=== PATIENT | male | born 1960 | race Caucasian/White ===

== ENCOUNTER 2024-08-05 12:25 | Inpatient (IN) | payer BC, OTHER ==
[~2024-08-05] VITALS: Ht 182.9 cm; Wt 62.7 kg
[2024-08-05] MEDS: LORazepam 2 mg/ml vial IV ONE (12:55)
[2024-08-05 13:26] LABS: BASOPHILS % (AUTO) 0.1 % (0-1); EOSINOPHILS % (AUTO) 0.1 % (0-6); HEMATOCRIT 45.2 % (42.0-52.0); HEMOGLOBIN 15.1 g/dl (14.0-17.9); LYMPHOCYTES # (AUTO) 0.3 X10'3 (1.1-4.8); LYMPHOCYTES % (AUTO) 1.8 % (21-51); MEAN CORPUSCULAR HEMOGLOBIN 32.7 PG (27.0-31.0); MEAN CORPUSCULAR HGB CONC 33.3 g/dL (33.0-36.5); MEAN CORPUSCULAR VOLUME 98.2 FL (78-98); MEAN PLATELET VOLUME 6.7 FL (7.4-10.4); MONOCYTES # (AUTO) 0.4 X10'3 (0-0.9); MONOCYTES % (AUTO) 2.3 % (2-12); NEUTROPHILS # (AUTO) 15.1 X10'3 (1.8-7.7); NEUTROPHILS % (AUTO) 95.7 % (42-75); PLATELET COUNT 368 X10'3 (140-440); RED CELL DISTRIBUTION WIDTH 13.3 % (11.5-14.5); WHITE BLOOD COUNT 15.7 X10'3 (4.5-11.0)
[2024-08-05 13:49] LABS: ALBUMIN 1.8 G/DL (3.4-5.0); ANION GAP 8 (8-16); BLOOD UREA NITROGEN 9 MG/DL (7-18); BUN/CREATININE RATIO 11.3 (10.0-20.0); CALCIUM 7.5 MG/DL (8.5-10.1); CHLORIDE 106 MMOL/L (99-107); GLUCOSE 135 MG/DL (70-104); POTASSIUM 4.7 MMOL/L (3.5-5.1); PRO BRAIN NATRIURETIC PEPTIDE 78 PG/ML (0-125); SODIUM 137 MMOL/L (135-145); TOTAL CARBON DIOXIDE 23.4 MMOL/L (24-32); eCRCL 85 ML/MIN; eGFR > 90 ML/MIN
[2024-08-05] MEDS ORDERED: morphine 2 MG/ML inj. syringe IV PRN (13:55)
[2024-08-05] MEDS ORDERED: acetaminophen 325mg tablet PO PRN ×2 (13:55)
[2024-08-05] MEDS ORDERED: mag hydrox/Alum hydrox/simeth 30ml oral suspension PO PRN (13:55)
[2024-08-05] MEDS ORDERED: ondansetron/PF 4mg/2ml inj IV PRN (13:55)
[2024-08-05] MEDS ORDERED: NO HOME MEDS (14:33)
[2024-08-05] MEDS ORDERED: LORazepam 1 MG tablet PO PRN (14:35)
[2024-08-05] MEDS ORDERED: ipratropium/albuterol 3ml nebule NEB PRN (15:20)
[2024-08-05] MEDS: HYDROcodone/acetaminophen 5mg/325mg tablet PO PRN (16:51)
[2024-08-05 17:33] VITALS: RESP 16
[2024-08-05 17:44] VITALS: PULSE 94; RESP 14; O2SAT 90
[2024-08-05 18:00] VITALS: BP 108/72; PULSE 84; RESP 14; TEMP 97.9; O2SAT 91
[2024-08-05 19:31] VITALS: PULSE 108; RESP 18; O2SAT 90
[2024-08-05 19:40] VITALS: RESP 16; O2SAT 91
[2024-08-05] MEDS: morphine 10mg/ml inj. IV ONE (21:14)
[2024-08-05] MEDS: LIDOcaine 1% 30ml preserv. free vial SQ STA (21:27)
[2024-08-05 22:00] VITALS: BP 99/63; PULSE 85; RESP 20; TEMP 97.4; O2SAT 90
[2024-08-05] MEDS: docusate sod 100mg capsule PO SCH (22:36)
[2024-08-05] MEDS: heparin, porcine 5000 units/ml vial SQ SCH (22:38)
[2024-08-05] MEDS: thiamine 100mg/ml 2ml inj. IV SCH (22:38)
[2024-08-05] MEDS: HYDROcodone/acetaminophen 10/325mg tab PO PRN (22:51)
[2024-08-06] MEDS: piperacillin/tazo 4.5gm/100ml 100 ML IV SCH (00:10)
[2024-08-06] MEDS: morphine 2 MG/ML inj. syringe IV PRN (00:20)
[2024-08-06 06:00] VITALS: BP 109/73; PULSE 74; RESP 18; TEMP 96.6; O2SAT 97
[2024-08-06 06:16] LABS: PROTHROMBIN TIME 10.6 SECONDS (9.0-12.0)
[2024-08-06 06:19] LABS: BASOPHILS % (AUTO) 0.2 % (0-1); EOSINOPHILS % (AUTO) 0 % (0-6); HEMATOCRIT 43.2 % (42.0-52.0); HEMOGLOBIN 14.5 g/dl (14.0-17.9); LYMPHOCYTES # (AUTO) 0.8 X10'3 (1.1-4.8); LYMPHOCYTES % (AUTO) 4.6 % (21-51); MEAN CORPUSCULAR HGB CONC 33.5 g/dL (33.0-36.5); MEAN CORPUSCULAR VOLUME 98.5 FL (78-98); MONOCYTES # (AUTO) 1.2 X10'3 (0-0.9); MONOCYTES % (AUTO) 6.9 % (2-12); NEUTROPHILS # (AUTO) 14.7 X10'3 (1.8-7.7); NEUTROPHILS % (AUTO) 88.3 % (42-75); PLATELET COUNT 397 X10'3 (140-440); RED BLOOD COUNT 4.39 X10'6 (4.70-6.10); RED CELL DISTRIBUTION WIDTH 13.4 % (11.5-14.5); WHITE BLOOD COUNT 16.6 X10'3 (4.5-11.0)
[2024-08-06 06:31] LABS: ALBUMIN 1.9 G/DL (3.4-5.0); ANION GAP 9 (8-16); BLOOD UREA NITROGEN 12 MG/DL (7-18); BUN/CREATININE RATIO 16.7 (10.0-20.0); CALCIUM 8.2 MG/DL (8.5-10.1); CHLORIDE 105 MMOL/L (99-107); CREATININE 0.72 MG/DL (0.60-1.10); GLUCOSE 148 MG/DL (70-104); POTASSIUM 4.2 MMOL/L (3.5-5.1); SODIUM 137 MMOL/L (135-145); TOTAL CARBON DIOXIDE 23.4 MMOL/L (24-32); eCRCL 94 ML/MIN; eGFR > 90 ML/MIN
[2024-08-06] MEDS: multivitamins, therapeutics tablet PO SCH (08:20)
[2024-08-06] MEDS: folic acid 1mg/0.2ml inj IV SCH (08:21)
[2024-08-06 10:00] VITALS: BP 98/64; PULSE 91; RESP 15; TEMP 97.5; O2SAT 92
[2024-08-06 18:00] VITALS: BP 122/71; PULSE 82; RESP 16; TEMP 97.7; O2SAT 95
[2024-08-06 20:00] VITALS: RESP 18; O2SAT 92
[2024-08-06 22:00] VITALS: BP 119/79; PULSE 88; RESP 18; TEMP 96; O2SAT 95
[2024-08-07 06:00] VITALS: BP 110/71; PULSE 71; RESP 16; TEMP 97.7; O2SAT 97
[2024-08-07 06:21] LABS: BASOPHILS % (AUTO) 0.2 % (0-1); EOSINOPHILS % (AUTO) 0.4 % (0-6); HEMOGLOBIN 14.3 g/dl (14.0-17.9); LYMPHOCYTES # (AUTO) 1.4 X10'3 (1.1-4.8); LYMPHOCYTES % (AUTO) 15.3 % (21-51); MEAN CORPUSCULAR HEMOGLOBIN 33.6 PG (27.0-31.0); MEAN CORPUSCULAR VOLUME 98.8 FL (78-98); MEAN PLATELET VOLUME 7.2 FL (7.4-10.4); MONOCYTES # (AUTO) 0.9 X10'3 (0-0.9); MONOCYTES % (AUTO) 9.8 % (2-12); NEUTROPHILS # (AUTO) 6.9 X10'3 (1.8-7.7); NEUTROPHILS % (AUTO) 74.3 % (42-75); PLATELET COUNT 350 X10'3 (140-440); RED BLOOD COUNT 4.25 X10'6 (4.70-6.10); RED CELL DISTRIBUTION WIDTH 13.1 % (11.5-14.5); WHITE BLOOD COUNT 9.2 X10'3 (4.5-11.0)
[2024-08-07 06:23] LABS: PROTHROMBIN TIME 10.4 SECONDS (9.0-12.0)
[2024-08-07 06:35] LABS: ALBUMIN 1.6 G/DL (3.4-5.0); ANION GAP 8 (8-16); BLOOD UREA NITROGEN 10 MG/DL (7-18); BUN/CREATININE RATIO 14.7 (10.0-20.0); CALCIUM 7.9 MG/DL (8.5-10.1); CHLORIDE 108 MMOL/L (99-107); CREATININE 0.68 MG/DL (0.60-1.10); GLUCOSE 99 MG/DL (70-104); POTASSIUM 3.8 MMOL/L (3.5-5.1); SODIUM 141 MMOL/L (135-145); TOTAL CARBON DIOXIDE 25.4 MMOL/L (24-32); eCRCL 100 ML/MIN; eGFR > 90 ML/MIN
[2024-08-07 08:00] VITALS: RESP 16
[2024-08-07 10:00] VITALS: BP 130/82; PULSE 95; RESP 18; TEMP 97.7; O2SAT 91
[2024-08-07] MEDS: levoFLOXACIN 750MG TABLET PO SCH (12:02)
[2024-08-07 18:00] VITALS: BP 115/76; PULSE 83; RESP 18; TEMP 98.3; O2SAT 94
[2024-08-07 20:10] VITALS: RESP 18
[2024-08-07 22:00] VITALS: BP 125/81; PULSE 86; RESP 18; TEMP 97.8; O2SAT 94
[2024-08-08 06:16] LABS: BASOPHILS % (AUTO) 0.6 % (0-1); EOSINOPHILS # (AUTO) 0.2 X10'3 (0-0.9); EOSINOPHILS % (AUTO) 2.1 % (0-6); HEMATOCRIT 43.8 % (42.0-52.0); HEMOGLOBIN 14.8 g/dl (14.0-17.9); LYMPHOCYTES # (AUTO) 1.4 X10'3 (1.1-4.8); LYMPHOCYTES % (AUTO) 18.6 % (21-51); MEAN CORPUSCULAR HEMOGLOBIN 32.9 PG (27.0-31.0); MEAN CORPUSCULAR HGB CONC 33.7 g/dL (33.0-36.5); MEAN CORPUSCULAR VOLUME 97.7 FL (78-98); MONOCYTES # (AUTO) 0.9 X10'3 (0-0.9); MONOCYTES % (AUTO) 11.8 % (2-12); NEUTROPHILS % (AUTO) 66.9 % (42-75); PLATELET COUNT 382 X10'3 (140-440); RED BLOOD COUNT 4.48 X10'6 (4.70-6.10); RED CELL DISTRIBUTION WIDTH 13.5 % (11.5-14.5); WHITE BLOOD COUNT 7.5 X10'3 (4.5-11.0)
[2024-08-08 06:18] LABS: PROTHROMBIN TIME 10.4 SECONDS (9.0-12.0)
[2024-08-08 06:27] LABS: ANION GAP 4 (8-16); BLOOD UREA NITROGEN 8 MG/DL (7-18); BUN/CREATININE RATIO 9.5 (10.0-20.0); CALCIUM 8.9 MG/DL (8.5-10.1); CHLORIDE 106 MMOL/L (99-107); CREATININE 0.84 MG/DL (0.60-1.10); GLUCOSE 91 MG/DL (70-104); SODIUM 141 MMOL/L (135-145); TOTAL CARBON DIOXIDE 31.5 MMOL/L (24-32); eCRCL 81 ML/MIN; eGFR > 90 ML/MIN
[2024-08-08 18:00] VITALS: BP 126/96; PULSE 89; RESP 14; TEMP 98.1; O2SAT 93
[2024-08-08 20:00] VITALS: RESP 14; O2SAT 93
[2024-08-08 22:00] VITALS: BP 119/80; PULSE 84; RESP 14; TEMP 97.5; O2SAT 95
[2024-08-09] MEDS: HYDROmorphone inj. 0.5 MG/0.5 ML DISP.SYRIN IV PRN (01:09)
[2024-08-09 05:36] LABS: BASOPHILS # (AUTO) 0.1 X10'3 (0-0.2); BASOPHILS % (AUTO) 0.8 % (0-1); EOSINOPHILS # (AUTO) 0.3 X10'3 (0-0.9); HEMATOCRIT 46.6 % (42.0-52.0); HEMOGLOBIN 15.8 g/dl (14.0-17.9); LYMPHOCYTES # (AUTO) 1.5 X10'3 (1.1-4.8); LYMPHOCYTES % (AUTO) 16.8 % (21-51); MEAN CORPUSCULAR HEMOGLOBIN 32.9 PG (27.0-31.0); MEAN CORPUSCULAR HGB CONC 33.9 g/dL (33.0-36.5); MEAN CORPUSCULAR VOLUME 97.1 FL (78-98); MEAN PLATELET VOLUME 6.6 FL (7.4-10.4); MONOCYTES # (AUTO) 0.8 X10'3 (0-0.9); MONOCYTES % (AUTO) 9.8 % (2-12); NEUTROPHILS # (AUTO) 5.9 X10'3 (1.8-7.7); NEUTROPHILS % (AUTO) 68.6 % (42-75); PLATELET COUNT 364 X10'3 (140-440); WHITE BLOOD COUNT 8.6 X10'3 (4.5-11.0)
[2024-08-09 05:57] LABS: ALBUMIN 2.1 G/DL (3.4-5.0); ANION GAP 8 (8-16); BLOOD UREA NITROGEN 8 MG/DL (7-18); BUN/CREATININE RATIO 11.4 (10.0-20.0); CALCIUM 8.9 MG/DL (8.5-10.1); CHLORIDE 105 MMOL/L (99-107); GLUCOSE 94 MG/DL (70-104); POTASSIUM 3.7 MMOL/L (3.5-5.1); SODIUM 139 MMOL/L (135-145); TOTAL CARBON DIOXIDE 25.9 MMOL/L (24-32); eCRCL 97 ML/MIN; eGFR > 90 ML/MIN
[2024-08-09 06:00] VITALS: BP 101/66; PULSE 88; RESP 15; TEMP 97.6; O2SAT 97
[2024-08-09 06:00] LABS: PROTHROMBIN TIME 10.3 SECONDS (9.0-12.0)
[2024-08-09] MEDS: thiamine 100mg tablet PO SCH (08:42)
[2024-08-09 10:00] VITALS: BP 99/59; PULSE 106; RESP 18; TEMP 98.3; O2SAT 94
[2024-08-09] MEDS ORDERED: MULT-25 PO (11:21)
[2024-08-09] MEDS ORDERED: LEVO750T68 PO (11:21)
[2024-08-09] MEDS ORDERED: HYDR-3965 PO (12:11)
[2024-08-09 18:30] VITALS: BP 132/84; PULSE 97; RESP 16; TEMP 97.9; O2SAT 92
[2024-08-09] MEDS: magnesium hydroxide 30ml (MOM) UD suspension PO PRN (20:14)
[2024-08-09 22:00] VITALS: BP 102/66; PULSE 83; RESP 13; TEMP 97.9; O2SAT 94
[2024-08-10 06:00] VITALS: BP 109/72; PULSE 90; RESP 16; TEMP 98.1; O2SAT 92
[2024-08-10 06:23] LABS: BASOPHILS # (AUTO) 0.1 X10'3 (0-0.2); BASOPHILS % (AUTO) 0.7 % (0-1); EOSINOPHILS # (AUTO) 0.4 X10'3 (0-0.9); EOSINOPHILS % (AUTO) 5.3 % (0-6); HEMATOCRIT 47.6 % (42.0-52.0); HEMOGLOBIN 16.1 g/dl (14.0-17.9); LYMPHOCYTES # (AUTO) 1.4 X10'3 (1.1-4.8); LYMPHOCYTES % (AUTO) 17.9 % (21-51); MEAN CORPUSCULAR HGB CONC 33.8 g/dL (33.0-36.5); MEAN CORPUSCULAR VOLUME 97.7 FL (78-98); MEAN PLATELET VOLUME 6.9 FL (7.4-10.4); MONOCYTES % (AUTO) 12.5 % (2-12); NEUTROPHILS # (AUTO) 5.1 X10'3 (1.8-7.7); NEUTROPHILS % (AUTO) 63.6 % (42-75); PLATELET COUNT 369 X10'3 (140-440); RED BLOOD COUNT 4.87 X10'6 (4.70-6.10); RED CELL DISTRIBUTION WIDTH 13.7 % (11.5-14.5)
[2024-08-10 06:50] LABS: ALBUMIN 1.9 G/DL (3.4-5.0); ANION GAP 3 (8-16); BLOOD UREA NITROGEN 7 MG/DL (7-18); BUN/CREATININE RATIO 7.8 (10.0-20.0); CALCIUM 8.6 MG/DL (8.5-10.1); CHLORIDE 103 MMOL/L (99-107); GLUCOSE 95 MG/DL (70-104); POTASSIUM 4.4 MMOL/L (3.5-5.1); SODIUM 138 MMOL/L (135-145); TOTAL CARBON DIOXIDE 31.6 MMOL/L (24-32); eCRCL 76 ML/MIN; eGFR 86 ML/MIN
[2024-08-10 07:05] LABS: PROTHROMBIN TIME 10.4 SECONDS (9.0-12.0)
[2024-08-10] MEDS: folic acid 1mg tablet PO SCH (07:17)
[2024-08-10 08:53] VITALS: PULSE 86; RESP 18; O2SAT 92
[2024-08-10 10:00] VITALS: BP 96/66; PULSE 74; RESP 18; TEMP 97; O2SAT 91
[2024-08-10 11:00] VITALS: O2SAT 94
[2024-08-10 13:29] VITALS: RESP 16; O2SAT 94
== END 2024-08-10 13:39 | disposition home or self-care (01) | DRG 199 ==
LOC: ER 12:26 → ORTHO 4S 13:55
PROVIDERS: ADMIT Internal Medicine; ATTEND Internal Medicine
PROC: 0W9B30Z Drainage of Left Pleural Cavity with Drainage Device, Percutaneous Approach (ICD-10-PCS; principal; 2024-08-05)
DX: J93.83 Other pneumothorax (principal); J18.9 Pneumonia, unspecified organism; J44.0 Chronic obstructive pulmonary disease with (acute) lower respiratory infection; J98.2 Interstitial emphysema; M19.09 Primary osteoarthritis, other specified site; F10.20 Alcohol dependence, uncomplicated; Z87.891 Personal history of nicotine dependence; Z90.49 Acquired absence of other specified parts of digestive tract
CPT/HCPCS: 36415; 71045; 71250; 80048; 82948; 83880; 84145; 84484; 85025; 85610; 87081; 93005; 94760; 96374; 96375; 97110; 97116; 97161; 97530; 99285; A4615; A6223; A6258; A6449; G0378; J1171; J1644; J2003; J2060; J2270; J2274; J2543; J3411; J3490

== ENCOUNTER 2024-09-04 01:39 | Inpatient (IN) | payer BC, OTHER ==
[~2024-09-04] VITALS: Ht 182.9 cm; Wt 63.0 kg
[~2024-09-04 01:39] MED LIST: HYDR-3965 PO; LEVO750T68 PO; MULT-25 PO
[2024-09-04] MEDS ORDERED: APIX5TAB3 PO (02:00)
[2024-09-04] MEDS ORDERED: [UNRECOGNIZED DRUG - CODE] PO (02:00)
[2024-09-04] MEDS ORDERED: potassium Cl 40MEQ/1/2NS 520ml 520 ML IV PRN (03:15)
[2024-09-04] MEDS ORDERED: magnesium sulf-water 2g/50mL 50 ML IV PRN (03:15)
[2024-09-04] MEDS ORDERED: magnesium hydroxide 30ml (MOM) UD suspension PO PRN (03:15)
[2024-09-04] MEDS ORDERED: magnesium Cl slow-release 64mg tablet PO PRN (03:15)
[2024-09-04] MEDS ORDERED: magnesium sulf-water 4G/100mL 100 ML IV PRN (03:15)
[2024-09-04] MEDS ORDERED: acetaminophen 325mg tablet PO PRN (03:15)
[2024-09-04] MEDS ORDERED: potassium Cl 20 mEq SR tablet PO PRN ×2 (03:15)
[2024-09-04] MEDS ORDERED: mag hydrox/Alum hydrox/simeth 30ml oral suspension PO PRN (03:15)
[2024-09-04] MEDS ORDERED: ondansetron/PF 4mg/2ml inj IV PRN (03:15)
[2024-09-04 03:39] LABS: MAGNESIUM 1.9 MG/DL (1.5-2.4); POTASSIUM 4.4 MMOL/L (3.5-5.1)
[2024-09-04] MEDS: HYDROcodone/acetaminophen 10/325mg tab PO PRN (03:42)
[2024-09-04] MEDS: K and/or MAG REPLACEMENT MC SCH (08:00)
[2024-09-04] MEDS: docusate sod 100mg capsule PO SCH (08:15)
[2024-09-04] MEDS: thiamine 100mg/ml 2ml inj. IV SCH (08:17)
[2024-09-04 08:33] LABS: BASOPHILS % (AUTO) 0.3 % (0-1); EOSINOPHILS # (AUTO) 0.3 X10'3 (0-0.9); EOSINOPHILS % (AUTO) 3.5 % (0-6); HEMATOCRIT 45.1 % (42.0-52.0); HEMOGLOBIN 15.3 g/dl (14.0-17.9); LYMPHOCYTES # (AUTO) 1.1 X10'3 (1.1-4.8); LYMPHOCYTES % (AUTO) 11.1 % (21-51); MEAN CORPUSCULAR HEMOGLOBIN 32.4 PG (27.0-31.0); MEAN CORPUSCULAR VOLUME 95.3 FL (78-98); MONOCYTES # (AUTO) 0.8 X10'3 (0-0.9); MONOCYTES % (AUTO) 8.4 % (2-12); NEUTROPHILS # (AUTO) 7.5 X10'3 (1.8-7.7); NEUTROPHILS % (AUTO) 76.7 % (42-75); PLATELET COUNT 246 X10'3 (140-440); RED BLOOD COUNT 4.73 X10'6 (4.70-6.10); RED CELL DISTRIBUTION WIDTH 13.1 % (11.5-14.5); WHITE BLOOD COUNT 9.8 X10'3 (4.5-11.0)
[2024-09-04 09:00] LABS: ALANINE AMINOTRANSFERASE 9 U/L (12-78); ALBUMIN 2.5 G/DL (3.4-5.0); ALBUMIN/GLOBULIN RATIO 0.6 (1.1-1.5); ALKALINE PHOSPHATASE 132 IU/L (46-116); ANION GAP 7 (8-16); ASPARTATE AMINO TRANSFERASE 17 U/L (10-37); BILIRUBIN,TOTAL 0.9 MG/DL (0.1-1.0); BLOOD UREA NITROGEN 6 MG/DL (7-18); BUN/CREATININE RATIO 9.5 (10.0-20.0); CALCIUM 8.6 MG/DL (8.5-10.1); CHLORIDE 104 MMOL/L (99-107); CREATININE 0.63 MG/DL (0.60-1.10); GLUCOSE 78 MG/DL (70-104); POTASSIUM 4.5 MMOL/L (3.5-5.1); SODIUM 138 MMOL/L (135-145); TOTAL CARBON DIOXIDE 27.3 MMOL/L (24-32); eCRCL 107 ML/MIN; eGFR > 90 ML/MIN
[2024-09-04] MEDS: folic acid 1mg/0.2ml inj IV SCH (09:15)
[2024-09-04] MEDS: LORazepam 1 MG tablet PO PRN (11:06)
[2024-09-04 17:00] VITALS: BP 119/74; PULSE 92; RESP 20; TEMP 99.2; O2SAT 92
[2024-09-04 18:00] VITALS: BP 103/62; PULSE 65; RESP 18; TEMP 99; O2SAT 96
[2024-09-04] MEDS: HYDROcodone/acetaminophen 5mg/325mg tablet PO PRN (18:14)
[2024-09-04 22:00] VITALS: BP 92/59; PULSE 74; RESP 12; TEMP 97.5; O2SAT 96
[2024-09-05] VITALS (14 sets, daily range): BP systolic 100–119; BP diastolic 62–80; PULSE 77–105; RESP 14–24; TEMP 97–98.4; O2SAT 92–98
[2024-09-05 06:46] LABS: BASOPHILS % (AUTO) 0.4 % (0-1); EOSINOPHILS # (AUTO) 0.4 X10'3 (0-0.9); EOSINOPHILS % (AUTO) 5.3 % (0-6); HEMATOCRIT 43.6 % (42.0-52.0); HEMOGLOBIN 14.9 g/dl (14.0-17.9); LYMPHOCYTES # (AUTO) 1.4 X10'3 (1.1-4.8); MEAN CORPUSCULAR HEMOGLOBIN 32.3 PG (27.0-31.0); MEAN CORPUSCULAR HGB CONC 34.3 g/dL (33.0-36.5); MEAN CORPUSCULAR VOLUME 94.2 FL (78-98); MEAN PLATELET VOLUME 7.2 FL (7.4-10.4); MONOCYTES # (AUTO) 0.8 X10'3 (0-0.9); MONOCYTES % (AUTO) 9.7 % (2-12); NEUTROPHILS # (AUTO) 5.7 X10'3 (1.8-7.7); NEUTROPHILS % (AUTO) 67.6 % (42-75); PLATELET COUNT 271 X10'3 (140-440); RED BLOOD COUNT 4.62 X10'6 (4.70-6.10); WHITE BLOOD COUNT 8.4 X10'3 (4.5-11.0)
[2024-09-05 06:56] LABS: PROTHROMBIN TIME 10.3 SECONDS (9.0-12.0)
[2024-09-05 07:23] LABS: ALANINE AMINOTRANSFERASE 12 U/L (12-78); ALBUMIN 2.5 G/DL (3.4-5.0); ALBUMIN/GLOBULIN RATIO 0.6 (1.1-1.5); ALKALINE PHOSPHATASE 136 IU/L (46-116); AMYLASE 71 U/L (25-115); ANION GAP 6 (8-16); ASPARTATE AMINO TRANSFERASE 12 U/L (10-37); BILIRUBIN,TOTAL 0.9 MG/DL (0.1-1.0); BLOOD UREA NITROGEN 7 MG/DL (7-18); BUN/CREATININE RATIO 13.2 (10.0-20.0); CALCIUM 8.8 MG/DL (8.5-10.1); CHLORIDE 103 MMOL/L (99-107); CREATININE 0.53 MG/DL (0.60-1.10); GLUCOSE 94 MG/DL (70-104); LIPASE 18 U/L (16-77); MAGNESIUM 1.9 MG/DL (1.5-2.4); PHOSPHORUS 3.6 MG/DL (2.3-4.5); POTASSIUM 3.9 MMOL/L (3.5-5.1); SODIUM 139 MMOL/L (135-145); eCRCL 127 ML/MIN; eGFR > 90 ML/MIN
[2024-09-05] MEDS: apixaban 5mg tablet PO SCH (08:12)
[2024-09-06] VITALS (7 sets, daily range): BP systolic 97–112; BP diastolic 60–77; PULSE 77–94; RESP 15–23; TEMP 97–97.9; O2SAT 92–98
[2024-09-06 07:32] LABS: BASOPHILS % (AUTO) 0.5 % (0-1); EOSINOPHILS # (AUTO) 0.4 X10'3 (0-0.9); EOSINOPHILS % (AUTO) 5.2 % (0-6); HEMATOCRIT 42.8 % (42.0-52.0); HEMOGLOBIN 14.4 g/dl (14.0-17.9); LYMPHOCYTES # (AUTO) 1.5 X10'3 (1.1-4.8); LYMPHOCYTES % (AUTO) 20.2 % (21-51); MEAN CORPUSCULAR HEMOGLOBIN 31.8 PG (27.0-31.0); MEAN CORPUSCULAR HGB CONC 33.6 g/dL (33.0-36.5); MEAN CORPUSCULAR VOLUME 94.5 FL (78-98); MEAN PLATELET VOLUME 7.3 FL (7.4-10.4); MONOCYTES # (AUTO) 0.9 X10'3 (0-0.9); MONOCYTES % (AUTO) 11.7 % (2-12); NEUTROPHILS # (AUTO) 4.8 X10'3 (1.8-7.7); NEUTROPHILS % (AUTO) 62.4 % (42-75); PLATELET COUNT 249 X10'3 (140-440); RED BLOOD COUNT 4.53 X10'6 (4.70-6.10); RED CELL DISTRIBUTION WIDTH 12.8 % (11.5-14.5); WHITE BLOOD COUNT 7.6 X10'3 (4.5-11.0)
[2024-09-06 07:51] LABS: PROTHROMBIN TIME 10.6 SECONDS (9.0-12.0)
[2024-09-06 08:10] LABS: ALANINE AMINOTRANSFERASE 9 U/L (12-78); ALBUMIN 2.4 G/DL (3.4-5.0); ALBUMIN/GLOBULIN RATIO 0.5 (1.1-1.5); ALKALINE PHOSPHATASE 127 IU/L (46-116); AMYLASE 69 U/L (25-115); ANION GAP 6 (8-16); ASPARTATE AMINO TRANSFERASE 18 U/L (10-37); BILIRUBIN,TOTAL 0.8 MG/DL (0.1-1.0); BLOOD UREA NITROGEN 6 MG/DL (7-18); BUN/CREATININE RATIO 9.5 (10.0-20.0); CHLORIDE 102 MMOL/L (99-107); CREATININE 0.63 MG/DL (0.60-1.10); GLUCOSE 92 MG/DL (70-104); LIPASE 18 U/L (16-77); MAGNESIUM 1.8 MG/DL (1.5-2.4); PHOSPHORUS 3.8 MG/DL (2.3-4.5); POTASSIUM 3.6 MMOL/L (3.5-5.1); SODIUM 137 MMOL/L (135-145); TOTAL CARBON DIOXIDE 29.2 MMOL/L (24-32); TOTAL PROTEIN 6.9 G/DL (6.4-8.2); eCRCL 107 ML/MIN; eGFR > 90 ML/MIN
[2024-09-06] MEDS ORDERED: morphine 4 MG/ML inj SYRINge IV PRN (13:10)
[2024-09-06] MEDS ORDERED: morphine 2 MG/ML inj. syringe IV PRN (13:10)
[2024-09-07] VITALS (7 sets, daily range): BP systolic 100–117; BP diastolic 63–75; PULSE 70–97; RESP 15–20; TEMP 97.3–98.2; O2SAT 92–95
[2024-09-07 06:57] LABS: PROTHROMBIN TIME 10.3 SECONDS (9.0-12.0)
[2024-09-07 07:06] LABS: BASOPHILS % (AUTO) 0.6 % (0-1); EOSINOPHILS # (AUTO) 0.5 X10'3 (0-0.9); EOSINOPHILS % (AUTO) 5.8 % (0-6); HEMOGLOBIN 14.2 g/dl (14.0-17.9); LYMPHOCYTES # (AUTO) 1.9 X10'3 (1.1-4.8); LYMPHOCYTES % (AUTO) 22.7 % (21-51); MEAN CORPUSCULAR HEMOGLOBIN 31.8 PG (27.0-31.0); MEAN CORPUSCULAR HGB CONC 33.7 g/dL (33.0-36.5); MEAN CORPUSCULAR VOLUME 94.2 FL (78-98); MEAN PLATELET VOLUME 7.2 FL (7.4-10.4); MONOCYTES # (AUTO) 0.8 X10'3 (0-0.9); MONOCYTES % (AUTO) 10.1 % (2-12); NEUTROPHILS # (AUTO) 5.1 X10'3 (1.8-7.7); NEUTROPHILS % (AUTO) 60.8 % (42-75); PLATELET COUNT 282 X10'3 (140-440); RED BLOOD COUNT 4.46 X10'6 (4.70-6.10); RED CELL DISTRIBUTION WIDTH 12.9 % (11.5-14.5); WHITE BLOOD COUNT 8.4 X10'3 (4.5-11.0)
[2024-09-07 07:14] LABS: ALANINE AMINOTRANSFERASE 12 U/L (12-78); ALBUMIN 2.3 G/DL (3.4-5.0); ALBUMIN/GLOBULIN RATIO 0.5 (1.1-1.5); ALKALINE PHOSPHATASE 131 IU/L (46-116); AMYLASE 66 U/L (25-115); ANION GAP 7 (8-16); ASPARTATE AMINO TRANSFERASE 15 U/L (10-37); BILIRUBIN,TOTAL 0.6 MG/DL (0.1-1.0); BLOOD UREA NITROGEN 7 MG/DL (7-18); BUN/CREATININE RATIO 9.2 (10.0-20.0); CALCIUM 8.8 MG/DL (8.5-10.1); CHLORIDE 103 MMOL/L (99-107); CREATININE 0.76 MG/DL (0.60-1.10); GLUCOSE 98 MG/DL (70-104); LIPASE 20 U/L (16-77); MAGNESIUM 1.8 MG/DL (1.5-2.4); PHOSPHORUS 4.7 MG/DL (2.3-4.5); SODIUM 138 MMOL/L (135-145); TOTAL CARBON DIOXIDE 27.8 MMOL/L (24-32); TOTAL PROTEIN 6.9 G/DL (6.4-8.2); eCRCL 89 ML/MIN; eGFR > 90 ML/MIN
[2024-09-07] MEDS: LORazepam 1 MG tablet PO PRN (08:47)
[2024-09-08] VITALS (7 sets, daily range): BP systolic 92–115; BP diastolic 58–74; PULSE 82–94; RESP 14–21; TEMP 97.2–98; O2SAT 94–96
[2024-09-08 06:26] LABS: BASOPHILS % (AUTO) 0.7 % (0-1); EOSINOPHILS # (AUTO) 0.4 X10'3 (0-0.9); HEMATOCRIT 39.7 % (42.0-52.0); HEMOGLOBIN 13.4 g/dl (14.0-17.9); LYMPHOCYTES # (AUTO) 1.5 X10'3 (1.1-4.8); LYMPHOCYTES % (AUTO) 23.3 % (21-51); MEAN CORPUSCULAR HGB CONC 33.8 g/dL (33.0-36.5); MEAN CORPUSCULAR VOLUME 94.6 FL (78-98); MEAN PLATELET VOLUME 6.9 FL (7.4-10.4); MONOCYTES # (AUTO) 0.7 X10'3 (0-0.9); MONOCYTES % (AUTO) 10.7 % (2-12); NEUTROPHILS # (AUTO) 3.9 X10'3 (1.8-7.7); NEUTROPHILS % (AUTO) 59.3 % (42-75); PLATELET COUNT 263 X10'3 (140-440); RED CELL DISTRIBUTION WIDTH 12.9 % (11.5-14.5); WHITE BLOOD COUNT 6.5 X10'3 (4.5-11.0)
[2024-09-08 06:41] LABS: PROTHROMBIN TIME 10.3 SECONDS (9.0-12.0)
[2024-09-08 06:49] LABS: ALANINE AMINOTRANSFERASE 13 U/L (12-78); ALBUMIN 2.3 G/DL (3.4-5.0); ALBUMIN/GLOBULIN RATIO 0.6 (1.1-1.5); ALKALINE PHOSPHATASE 134 IU/L (46-116); AMYLASE 75 U/L (25-115); ANION GAP 5 (8-16); ASPARTATE AMINO TRANSFERASE 9 U/L (10-37); BILIRUBIN,TOTAL 0.4 MG/DL (0.1-1.0); BLOOD UREA NITROGEN 8 MG/DL (7-18); BUN/CREATININE RATIO 12.7 (10.0-20.0); CALCIUM 8.6 MG/DL (8.5-10.1); CHLORIDE 105 MMOL/L (99-107); CREATININE 0.63 MG/DL (0.60-1.10); GLUCOSE 100 MG/DL (70-104); LIPASE 18 U/L (16-77); MAGNESIUM 1.9 MG/DL (1.5-2.4); PHOSPHORUS 3.7 MG/DL (2.3-4.5); POTASSIUM 3.8 MMOL/L (3.5-5.1); SODIUM 141 MMOL/L (135-145); TOTAL CARBON DIOXIDE 30.9 MMOL/L (24-32); TOTAL PROTEIN 6.4 G/DL (6.4-8.2); eCRCL 107 ML/MIN; eGFR > 90 ML/MIN
[2024-09-09] VITALS (8 sets, daily range): BP systolic 102–122; BP diastolic 65–79; PULSE 81–103; RESP 16–30; TEMP 97.3–98.1; O2SAT 91–96
[2024-09-09 06:36] LABS: BASOPHILS % (AUTO) 0.6 % (0-1); EOSINOPHILS # (AUTO) 0.4 X10'3 (0-0.9); EOSINOPHILS % (AUTO) 6.4 % (0-6); HEMATOCRIT 42.2 % (42.0-52.0); HEMOGLOBIN 14.3 g/dl (14.0-17.9); LYMPHOCYTES # (AUTO) 1.9 X10'3 (1.1-4.8); LYMPHOCYTES % (AUTO) 28.2 % (21-51); MEAN CORPUSCULAR HGB CONC 33.9 g/dL (33.0-36.5); MEAN CORPUSCULAR VOLUME 94.6 FL (78-98); MEAN PLATELET VOLUME 6.6 FL (7.4-10.4); MONOCYTES # (AUTO) 0.7 X10'3 (0-0.9); MONOCYTES % (AUTO) 10.2 % (2-12); NEUTROPHILS # (AUTO) 3.7 X10'3 (1.8-7.7); NEUTROPHILS % (AUTO) 54.6 % (42-75); PLATELET COUNT 294 X10'3 (140-440); RED BLOOD COUNT 4.47 X10'6 (4.70-6.10); WHITE BLOOD COUNT 6.8 X10'3 (4.5-11.0)
[2024-09-09 06:55] LABS: PROTHROMBIN TIME 10.4 SECONDS (9.0-12.0)
[2024-09-09 07:16] LABS: ALANINE AMINOTRANSFERASE 12 U/L (12-78); ALBUMIN 2.5 G/DL (3.4-5.0); ALBUMIN/GLOBULIN RATIO 0.5 (1.1-1.5); ALKALINE PHOSPHATASE 155 IU/L (46-116); AMYLASE 80 U/L (25-115); ANION GAP 4 (8-16); ASPARTATE AMINO TRANSFERASE 16 U/L (10-37); BILIRUBIN,TOTAL 0.5 MG/DL (0.1-1.0); BLOOD UREA NITROGEN 7 MG/DL (7-18); BUN/CREATININE RATIO 9.6 (10.0-20.0); CALCIUM 9.3 MG/DL (8.5-10.1); CHLORIDE 103 MMOL/L (99-107); CREATININE 0.73 MG/DL (0.60-1.10); GLUCOSE 95 MG/DL (70-104); LIPASE 19 U/L (16-77); PHOSPHORUS 3.8 MG/DL (2.3-4.5); POTASSIUM 3.8 MMOL/L (3.5-5.1); SODIUM 139 MMOL/L (135-145); TOTAL CARBON DIOXIDE 31.9 MMOL/L (24-32); TOTAL PROTEIN 7.3 G/DL (6.4-8.2); eCRCL 92 ML/MIN; eGFR > 90 ML/MIN
[2024-09-10 06:00] VITALS: O2SAT 90
[2024-09-10 07:00] VITALS: BP 118/74; PULSE 87; RESP 21; TEMP 97.8; O2SAT 94
[2024-09-10] MEDS: LIDOcaine 1% 30ml preserv. free vial SQ STA (09:43)
[2024-09-10] MEDS: midazolam 1 mg/ML 2ml injection IV ONE (10:51)
[2024-09-10] MEDS: fentaNYL/PF 50MCG/1 ML 2ML syringe IV ONE (10:52)
[2024-09-10 11:00] VITALS: BP 113/72; PULSE 89; RESP 18; TEMP 98.5; O2SAT 92
[2024-09-10 12:23] VITALS: RESP 19
[2024-09-10] MEDS ORDERED: HYDR-3972 PO ×2 (12:28→13:09)
== END 2024-09-10 15:21 | disposition home or self-care (01) | DRG 199 ==
LOC: ER 01:40 → ED HOLD 03:18 → PCU 3S 14:30
PROVIDERS: ADMIT Surgery Surgical Critical Care; ATTEND Family Medicine
PROC: 0W9930Z Drainage of Right Pleural Cavity with Drainage Device, Percutaneous Approach (ICD-10-PCS; principal; 2024-09-05)
DX: J93.83 Other pneumothorax (principal); I26.99 Other pulmonary embolism without acute cor pulmonale; G89.29 Other chronic pain; M54.9 Dorsalgia, unspecified; M54.2 Cervicalgia; Z79.01 Long term (current) use of anticoagulants; Z85.850 Personal history of malignant neoplasm of thyroid
CPT/HCPCS: 32557; 36415; 71045; 71250; 77012; 80053; 82150; 82948; 83690; 83735; 84100; 84132; 85025; 85610; 87070; 87081; 93005; 97161; 97530; 99285; A4421; A4615; A6213; A6223; A6258; A6449; C1729; G0378; J2003; J2250; J3010; J3411; J3490

== ENCOUNTER 2024-09-18 10:14 | Emergency (ER) | payer BC, OTHER ==
[~2024-09-18] VITALS: Ht 182.9 cm; Wt 63.5 kg
[~2024-09-18 10:14] MED LIST changes: +APIX5TAB3 PO; -HYDR-3965 PO; +HYDR-3972 PO; -LEVO750T68 PO; +[UNRECOGNIZED DRUG - CODE] PO
[2024-09-18 10:15] VITALS: TEMP 97.9
[2024-09-18 13:03] VITALS: BP 120/76; PULSE 86; RESP 15; O2SAT 95
== END 2024-09-18 13:04 | disposition home or self-care (01) ==
LOC: ER 10:15
DX: J93.9 Pneumothorax, unspecified (principal); Z88.1 Allergy status to other antibiotic agents
CPT/HCPCS: 71045; 99283; A6222; A6258; A6223